=== PATIENT | male | born 1960 | race African-American/Black ===

== ENCOUNTER 2022-03-23 07:43 | Emergency (ER) | payer OTHER ==
[~2022-03-23] VITALS: Ht 185.4 cm; Wt 81.8 kg
[~2022-03-23 07:43] MED LIST: ALBU17AE16 IH
[2022-03-23 07:59] VITALS: BP 149/110
[2022-03-23] MEDS ORDERED: ALBUTEROL SULFATE 2.5 MG/0.5 ML NEB SOLUTION NEB ONE (09:00)
[2022-03-23] MEDS ORDERED: PredniSONE 20 MG TABLET PO ONE (09:00)
[2022-03-23] MEDS ORDERED: IPRATROPIUM BROMIDE 0.5 MG/2.5 ML NEB SOLUTION NEB ONE (09:00)
[2022-03-23] MEDS ORDERED: DOXY75TA14 PO (09:26)
[2022-03-23] MEDS ORDERED: ALBU8.5H8 IH (09:27)
[2022-03-23] MEDS ORDERED: PRED-554 PO (09:28)
== END 2022-03-23 10:05 | disposition home or self-care (01) ==
LOC: EMS 07:43
DX: H04.302 Unspecified dacryocystitis of left lacrimal passage (principal); J45.909 Unspecified asthma, uncomplicated; F17.210 Nicotine dependence, cigarettes, uncomplicated; F12.90 Cannabis use, unspecified, uncomplicated
CPT/HCPCS: 94640; 99283; J7512

== ENCOUNTER 2023-10-16 16:23 | Emergency (ER) | payer OTHER ==
[~2023-10-16] VITALS: Ht 185.4 cm; Wt 72.7 kg
[~2023-10-16 16:23] MED LIST changes: +ALBU8.5H8 IH; +DOXY75TA14 PO; +PRED-554 PO
[2023-10-16 17:30] VITALS: TEMP 98.1
[2023-10-16] MEDS ORDERED: SODIUM CHLORIDE 0.9% 1,000 ML IV ONE (18:45)
[2023-10-16 19:59] LABS: COVID AG,FIA SOURCE NASAL SWAB
[2023-10-16 20:09] LABS: ANION GAP 8 mmol/L (8-16); BASOPHILS % (AUTO) 0.9 % (0.0-2.0); CALCIUM, TOTAL 8.6 mg/dL (8.8-10.5); CARBON DIOXIDE 27 mmol/L (22-29); CHLORIDE 104 mmol/L (98-107); CREATININE 1.29 mg/dL (0.60-1.30); EOSINOPHILS % (AUTO) 5.3 % (1.0-6.0); GLOMERULAR FILTR. RATE CALC > 60 mL/min (>60); GLUCOSE,RANDOM 120 mg/dL (70-110); HEMATOCRIT 37.9 % (41-53); LYMPHOCYTES # (AUTO) 2.3 K/uL (1.0-4.8); LYMPHOCYTES % (AUTO) 52.7 % (22.0-44.0); MEAN CORPUSCULAR HEMOGLOBIN 31.8 pg (26.0-34.0); MEAN CORPUSCULAR HGB CONC 34.2 G/dL (31.0-37.0); MEAN CORPUSCULAR VOLUME 93 fL (80-100); MONOCYTES # (AUTO) 0.5 K/uL (0.1-1.0); MONOCYTES % (AUTO) 11.7 % (2.0-9.0); NEUTROPHILS # (AUTO) 1.3 K/uL (1.8-7.7); NEUTROPHILS % (AUTO) 29.4 % (40.0-70.0); PLATELET COUNT (AUTO) 266 K/uL (150-450); POTASSIUM 3.5 mmol/L (3.5-5.1); RED BLOOD CELL COUNT(AUTO) 4.07 MIL/uL (4.50-5.90); RED CELL DISTRIBUTION WIDTH 13.7 % (11.5-14.5); SODIUM SERUM 138 mmol/L (136-145); UREA NITROGEN, BLOOD 17 mg/dL (7-18); WHITE BLOOD COUNT (AUTO) 4.3 K/uL (4.5-11.0)
[2023-10-16 20:12] VITALS: BP 117/73; PULSE 88; RESP 16
[2023-10-16 20:14] LABS: ALANINE AMINOTRANSFERASE 14 U/L (12-78); ALKALINE PHOSPHATASE 64 U/L (46-116); ASPARTATE AMINOTRANSFERASE 10 U/L (15-37); BILIRUBIN,TOTAL 0.3 mg/dL (0.1-1.0); LIPASE 78 U/L (16-77); TOTAL PROTEIN, SERUM 7.1 g/dL (6.4-8.2)
[2023-10-16 20:17] LABS: LACTIC ACID 0.6 mmol/L (0.4-2.0)
[2023-10-16 20:18] LABS: TROPONIN I-HIGH SENSITIVITY 5 ng/L (<76)
[2023-10-16 20:28] LABS: ALCOHOL, BLOOD (SERUM) < 3 mg/dL (0-10)
[2023-10-16 20:37] LABS: SARS-COV2 (COVID) ANTIGEN,FIA Negative (Negative)
== END 2023-10-16 20:45 | disposition left against medical advice (07) ==
LOC: EMS 16:24
DX: R55 Syncope and collapse (principal); J45.909 Unspecified asthma, uncomplicated; F12.90 Cannabis use, unspecified, uncomplicated
CPT/HCPCS: 80053; 83605; 83690; 84484; 85025; 36415; 71045; 99285; 93005; 96360; 87426; G0480

== ENCOUNTER 2024-11-27 13:42 | Emergency (ER) | payer OTHER ==
[~2024-11-27] VITALS: Ht 185.4 cm; Wt 72.6 kg
[~2024-11-27 13:42] MED LIST changes: +CARV12 PO; +GABA-1181 PO; +LOSA-381 PO
[2024-11-27 14:15] VITALS: TEMP 96.8
[2024-11-27 14:56] LABS: GLUCOMETER DEV NAME(LOC) ER.7; GLUCOSE,POINT OF CARE 179 MG/DL (70-110)
[2024-11-27 15:35] LABS: HEMATOCRIT 46.9 % (41-53); HEMOGLOBIN 15.2 g/dL (13.5-17.5); MEAN CORPUSCULAR HEMOGLOBIN 31.7 pg (26.0-34.0); MEAN CORPUSCULAR HGB CONC 32.5 G/dL (31.0-37.0); MEAN CORPUSCULAR VOLUME 98 fL (80-100); PLATELET COUNT (AUTO) 273 K/uL (150-450); RED BLOOD CELL COUNT(AUTO) 4.81 MIL/uL (4.50-5.90); RED CELL DISTRIBUTION WIDTH 13.8 % (11.5-14.5); WHITE BLOOD COUNT (AUTO) 2.8 K/uL (4.5-11.0)
[2024-11-27 15:43] LABS: BAND NEUTROPHILS % (MANUAL) 0 % (0-5)
[2024-11-27 15:44] LABS: ANION GAP 15 mmol/L (8-16); CALCIUM, TOTAL 9.1 mg/dL (8.8-10.5); CARBON DIOXIDE 23 mmol/L (22-29); CHLORIDE 99 mmol/L (98-107); CREATININE 1.11 mg/dL (0.60-1.30); GLOMERULAR FILTR. RATE CALC > 60 mL/min (>60); GLUCOSE,RANDOM 187 mg/dL (70-110); POTASSIUM 4.9 mmol/L (3.5-5.1); SODIUM SERUM 137 mmol/L (136-145); UREA NITROGEN, BLOOD 13 mg/dL (7-18)
[2024-11-27 15:59] LABS: ALANINE AMINOTRANSFERASE 41 U/L (12-78); ALBUMIN 3.7 g/dL (3.4-5.0); ALKALINE PHOSPHATASE 81 U/L (46-116); ASPARTATE AMINOTRANSFERASE 72 U/L (15-37); BILIRUBIN,TOTAL 0.5 mg/dL (0.1-1.0); LIPASE 58 U/L (16-77); THYROID STIMULATING HORMONE 1.16 uIU/mL (0.36-3.74); TOTAL PROTEIN, SERUM 7.7 g/dL (6.4-8.2)
[2024-11-27 16:07] LABS: LYMPHOCYTES % (MANUAL) 75 % (22-44); MONOCYTES % (MANUAL) 3 % (2-9); SEGMENTED NEUTROPHILS % 22 % (40-70); TOTAL CELLS COUNTED 100
[2024-11-27 17:31] LABS: GLUCOMETER DEV NAME(LOC) ER.7; GLUCOSE,POINT OF CARE 145 MG/DL (70-110)
[2024-11-27 17:51] VITALS: BP 128/82; PULSE 89; RESP 15; O2SAT 95
== END 2024-11-27 19:30 | disposition home or self-care (01) ==
LOC: EMS 14:06
DX: F10.229 Alcohol dependence with intoxication, unspecified (principal); R73.9 Hyperglycemia, unspecified; J45.909 Unspecified asthma, uncomplicated; F17.290 Nicotine dependence, other tobacco product, uncomplicated; F12.90 Cannabis use, unspecified, uncomplicated; Z98.890 Other specified postprocedural states; Z79.52 Long term (current) use of systemic steroids; Z79.899 Other long term (current) drug therapy
CPT/HCPCS: 99283; 99406; 80048; 80076; 82962; 83690; 84443; 85025; 36415; G0480